=== PATIENT | female | born 1960 ===

== ENCOUNTER 2018-05-22 22:32 | Emergency (ER) | payer OTHER ==
[~2018-05-22] VITALS: Ht 160 cm; Wt 87.1 kg
[~2018-05-22 22:32] MED LIST: AMBIEN10 MG; CEFTIN250 MG PO; CIPRO500 MG PO; HEMATRON P.O.1 UDTAB; INTESTINEX1 CAP PO; KETO10TA2 PO; LEVSIN/SL0.125 MG SL; PROTONIX40 MG PO; SYNTHROID125 MCG; SYNTHROID137 MCG; SYNTHROID88 MCG; ZOFRAN4 MG SL
[2018-05-23] MEDS ORDERED: BACTRIM DS TAB1 EACH PO (04:51)
[2018-05-23] MEDS ORDERED: KETO10TA2 PO (04:51)
[2018-05-23] MEDS ORDERED: MUPIROCIN22 GM TOP (04:54)
== END 2018-05-23 05:04 | disposition home or self-care (01) ==
LOC: ER 22:32
DX: N75.8 Other diseases of Bartholin's gland (principal)

== ENCOUNTER 2019-09-04 12:06 | Emergency (ER) | payer OTHER ==
[~2019-09-04] VITALS: Ht 160 cm; Wt 79.8 kg
[~2019-09-04 12:06] MED LIST changes: +BACTRIM DS TAB1 EACH PO; +MUPIROCIN22 GM TOP
[2019-09-04] MEDS ORDERED: TESSALON PERLE100 M1 PO (15:27)
== END 2019-09-04 15:39 | disposition home or self-care (01) ==
LOC: ER 12:06
DX: B34.9 Viral infection, unspecified (principal); R06.02 Shortness of breath; R05 Cough; Z03.818 Encounter for observation for suspected exposure to other biological agents ruled out

== ENCOUNTER 2019-09-24 21:21 | Emergency (ER) | payer OTHER ==
[~2019-09-24] VITALS: Ht 160 cm; Wt 80.7 kg
[~2019-09-24 21:21] MED LIST changes: +TESSALON PERLE100 M1 PO
[2019-09-24] MEDS ORDERED: NORVASC5 MG (21:39)
== END 2019-09-24 23:43 | disposition home or self-care (01) ==
LOC: ER 21:21
DX: L02.412 Cutaneous abscess of left axilla (principal)

== ENCOUNTER 2019-10-24 18:59 | Emergency (ER) | payer OTHER ==
[~2019-10-24] VITALS: Ht 160 cm; Wt 80.3 kg
[~2019-10-24 18:59] MED LIST changes: +NORVASC5 MG
[2019-10-24] MEDS ORDERED: CLARITIN10 MG PO (20:56)
[2019-10-24] MEDS ORDERED: TUSNEL LIQUID178 ML PO (20:56)
[2019-10-24] MEDS ORDERED: DOLOGEN CAPLET1 EACH PO (20:56)
== END 2019-10-24 21:00 | disposition home or self-care (01) ==
LOC: ER 18:59
DX: B34.9 Viral infection, unspecified (principal)

== ENCOUNTER → 2020-05-11 | Outpatient (CLI) | payer OTHER ==
[~2020-05-11] MED LIST changes: +CLARITIN10 MG PO; +DOLOGEN CAPLET1 EACH PO; +TUSNEL LIQUID178 ML PO
== END | disposition home or self-care (01) ==
LOC: MAMO-SONO 04-20 14:45 → SONOGRAMA 05-06 12:46 → MAMO-SONO 05-06 13:15 → SONOGRAMA 12:36
PROVIDERS: ATTEND Obstetrics & Gynecology Gynecology
DX: N64.59 Other signs and symptoms in breast (principal)

== ENCOUNTER 2020-06-20 12:31 | Emergency (ER) | payer OTHER ==
[~2020-06-20] VITALS: Ht 160 cm; Wt 84.4 kg
[2020-06-20] MEDS ORDERED: SYNTHROID137 MCG (12:50)
[2020-06-20] MEDS ORDERED: DILTIAZEM ER180 M3 (12:51)
[2020-06-20] MEDS ORDERED: HYZAAR 50-12.51 EACH (12:52)
== END 2020-06-20 19:43 | disposition home or self-care (01) ==
LOC: ER 12:31
DX: J06.9 Acute upper respiratory infection, unspecified (principal); E87.6 Hypokalemia; Z03.818 Encounter for observation for suspected exposure to other biological agents ruled out

== ENCOUNTER 2020-06-24 22:18 | Emergency (ER) | payer OTHER ==
[~2020-06-24] VITALS: Ht 160 cm; Wt 84.4 kg
[~2020-06-24 22:18] MED LIST changes: +DILTIAZEM ER180 M3; +HYZAAR 50-12.51 EACH
== END 2020-06-25 02:08 | disposition home or self-care (01) ==
LOC: ER 22:18
DX: B34.9 Viral infection, unspecified (principal); Z03.818 Encounter for observation for suspected exposure to other biological agents ruled out